=== PATIENT | male | born 1980 | race Caucasian/White ===

== ENCOUNTER → 2018-09-23 | Outpatient (CLI) | payer BC ==
[2018-09-23 15:09] LABS: BASO % 0.6 % (0.0-1.0); HEMATOCRIT 49.8 % (42.0-52.0); HEMOGLOBIN 16.6 g/dl (13.5-17.5); LYMPH # 0.9 10^3/uL (1.5-4.5); LYMPH % 29.2 % (24.0-44.0); MEAN CORPUSCULAR HEMOGLOBIN 29.4 pg (27.0-33.0); MEAN CORPUSCULAR HGB CONC 33.3 g/dl (32.0-36.5); MEAN CORPUSCULAR VOLUME 88.3 fl (80.0-96.0); MONO # 0.5 10^3/uL (0.0-0.8); MONO % 14.3 % (0.0-5.0); NEUTROPHILS # 1.7 10^3/uL (1.8-7.7); NEUTROPHILS % 54.9 % (36.0-66.0); PLATELET COUNT, AUTOMATED 240 10^3/uL (150-450); RED BLOOD COUNT 5.64 10^6/uL (4.30-6.10); WHITE BLOOD COUNT 3.2 10^3/uL (4.0-10.0)
== END ==
LOC: M LABDRWAD 14:01
PROVIDERS: ATTEND Physician Assistant Medical
DX: J20.9 Acute bronchitis, unspecified (principal)

== ENCOUNTER → 2018-09-23 | Outpatient (CLI) | payer BC ==
--- NOTE | 2018-09-23 14:37 | REP ---
Clinical: Acute bronchitis. Technique: PA and lateral. Comparison: 01/31/2015. Findings: Mediastinum and cardiac silhouette are stable. Coarsened interstitial markings may reflect bronchitis. No focal consolidation, effusion, or pneumothorax. Trace scarring at the left base noted. Skeletal structures intact. Impression: Coarsened markings may reflect bronchitis. No focal consolidation. If the patient remains symptomatic consider chest CT for further investigation. Electronically Signed by Nabeel Lockwood MD 09/23/2018 02:28 P
== END ==
LOC: M ADAMS 13:56
PROVIDERS: ATTEND Physician Assistant Medical
DX: J20.9 Acute bronchitis, unspecified (principal)

== ENCOUNTER → 2018-09-29 | Outpatient (REF) | payer BC ==
[2018-09-29 20:02] LABS: BASO % 0.4 % (0.0-1.0); EOS % 0.4 % (0.0-3.0); HEMATOCRIT 51.2 % (42.0-52.0); HEMOGLOBIN 16.8 g/dl (13.5-17.5); LYMPH # 1.6 10^3/uL (1.5-4.5); MEAN CORPUSCULAR HEMOGLOBIN 29.2 pg (27.0-33.0); MEAN CORPUSCULAR HGB CONC 32.8 g/dl (32.0-36.5); MEAN CORPUSCULAR VOLUME 88.9 fl (80.0-96.0); MONO # 0.7 10^3/uL (0.0-0.8); MONO % 10.9 % (0.0-5.0); NEUTROPHILS # 4.4 10^3/uL (1.8-7.7); NEUTROPHILS % 64.4 % (36.0-66.0); PLATELET COUNT, AUTOMATED 328 10^3/uL (150-450); RED BLOOD COUNT 5.76 10^6/uL (4.30-6.10); WHITE BLOOD COUNT 6.8 10^3/uL (4.0-10.0)
== END ==
LOC: M LABDRWAD 18:56
PROVIDERS: ATTEND Physician Assistant Medical
DX: D70.9 Neutropenia, unspecified (principal)

== ENCOUNTER 2025-05-01 15:48 | Emergency (ER) | payer BC, SELFPAY ==
[~2025-05-01] VITALS: Ht 175.3 cm; Wt 106.6 kg
[2025-05-01] MEDS: NS 500 ML IV ONE (16:35)
[2025-05-01] MEDS: TETANUS/DIPHTH/ACEL. PERTUSSIS 0.5 ML SYR IM.IMMUN ONE (16:37)
[2025-05-01] MEDS ORDERED: ISOVUE-370 76% 100 ML VIAL As Ordered ONE (16:38)
[2025-05-01 16:49] LABS: BASO # 0.0 10^3/uL (0.0-0.2); BASO % 0.5 % (0.0-1.0); EOS # 0.0 10^3/uL (0.0-0.5); EOS % 0.5 % (0.0-3.0); LYMPH # 1.4 10^3/uL (1.5-5.0); LYMPH % 18.1 % (24.0-44.0); MONO # 0.6 10^3/uL (0.0-0.8); MONO % 7.6 % (2.0-8.0); NEUTROPHILS # 5.6 10^3/uL (1.5-8.5); NEUTROPHILS % 73.0 % (36.0-66.0); PLATELET COUNT, AUTOMATED 279 10^3/uL (150-450)
[2025-05-01 17:10] LABS: ALT/SGPT 81 U/L (7.0-40); AST/SGOT 40 U/L (<34); CALCIUM LEVEL 9.6 MG/DL (8.5-10.1); CARBON DIOXIDE LEVEL 28 MMOL/L (20-31); CHLORIDE LEVEL 103 MMOL/L (98-107); CREATININE FOR GFR 1.03 MG/DL (0.70-1.30); GLOMERULAR FILTRATION RATE > 90.0 (>60); POTASSIUM SERUM 4.2 MMOL/L (3.5-5.1); SODIUM LEVEL 142 MMOL/L (136-145)
[2025-05-01] MEDS: ACETAMINOPHEN *IV* 1,000 MG in IV 1 EA IV ONE (18:20)
[2025-05-01 18:39] VITALS: BP 131/74; TEMP 98.3; O2SAT 96
== END 2025-05-01 18:45 | disposition home or self-care (01) ==
LOC: M ED 15:48
DX: S80.11XA Contusion of right lower leg, initial encounter (principal); S80.12XA Contusion of left lower leg, initial encounter; S40.021A Contusion of right upper arm, initial encounter; S20.219A Contusion of unspecified front wall of thorax, initial encounter; S30.1XXA Contusion of abdominal wall, initial encounter; W17.89XA Other fall from one level to another, initial encounter; N28.1 Cyst of kidney, acquired; Y92.009 Unspecified place in unspecified non-institutional (private) residence as the place of occurrence of the external cause; Y93.89 Activity, other specified; Y99.9 Unspecified external cause status
CPT/HCPCS: 70450; 71045; 71260; 72125; 73090; 73590; 74177; 80047; 80048; 80076; 82150; 83690; 85025; 86850; 86900; 86901; 90471; 90715; 93005; 93041; 94760; 96361; 96374; 99285; Q9967